=== PATIENT | female | born 1950 | race Caucasian/White ===

== ENCOUNTER → 2016-08-31 | Day surgery (SDC) | payer MEDICARE, BC ==
[~2016-08-31] MED LIST: ASPI81TA9 PO; ATEN25TA PO; ATOR40TA59 PO; CARB200T PO; CYAN10002 IJ; DULO60CA6 PO; FAMC500T PO; FLUT1DIS IH; GABA-586 PO; HYDROmorphone 2 MG/ML VIAL IV PRN; IV RINGERS,LACTATED 1000ML 1,000 ML IV SCH; LIDOCAINE 1% 1 ML SYRINGE. ID PRN; LIPA1CAP PO; MORPHINE SULFATE 2 MG/ML DISP.SYRIN. IV PRN; ONDANSETRON PF 4 MG/2 ML VIAL. IV PRN; PROCHLORPERAZINE 10 MG/2 ML VIAL. IV PRN; PROPOFOL 40 ML IV ONE; ROPI0.5T PO; TEMA15CA PO; fentaNYL PF VIAL 100 MCG/2 ML VIAL IV PRN
[2016-08-31 13:43] VITALS: BP 149/76
--- NOTE | 2016-09-04 15:27 | PATHOLOGY ---
PATHOLOGY REPORT * * * * * * * * FINAL DIAGNOSIS: A. Esophageal biopsies, distal esophagus: - Segments of hyperplastic squamous esophageal mucosa consistent with reflux esophagitis. B. Random colon biopsy: - No significant pathologic abnormalities. COMMENT: A. Sections of the distal esophageal biopsy reveal multiple segments of focally tangentially oriented, hyperplastic squamous esophageal mucosa. The findings are consistent with reflux esophagitis. There is no evidence of Howe's change, dysplasia, or malignancy. B. Sections of the random colon biopsy reveal multiple segments of colonic mucosa. There is no evidence of a chronic destructive colitis, lymphocytic colitis, or collagenous colitis. REPORT ELECTRONICALLY SIGNED BY: Jac Kohler M.D. DATE/TIME: 09/04/2016 15:27 * * * * * * * * GROSS PATHOLOGY: A. Received in formalin labeled "Joe Henson, distal esophagus biopsy reflux, rule out Howe's," are 7 segments of linder soft tissue measuring 0.7 x 0.5 x 0.3 cm in aggregate dimensions and ranging from 0.2 to 0.4 cm in maximum dimension. The specimen is submitted entirely in cassette A1. B. Received in formalin labeled "Joe Henson, random colon biopsy," are 7 segments of linder soft tissue measuring 0.8 x 0.5 x 0.2 cm in aggregate dimensions and ranging from 0.2 to 0.5 cm in maximum dimension. The specimen is submitted entirely in cassette B1. ([facility]; 09/01/2016) INITIAL CPT CODE(S): A; 54305 B; 02177 Professional services performed by [facility] at [address] [address] Technical services performed by [facility] at [address] [place] [address], [facility] [address], [place] [address]. SPECIMEN(S) RECEIVED: A.Distal esophagus biopsy reflux B.Random colon biopsy CLINICAL HISTORY: GERD PATIENT: JOE HENSON /AGE: 901/08/1950 (Age: 66) PATIENT #: [id number] ALT CASE #: SPECIMEN COLLECTION DATE: 08/31/2016 SPECIMEN RECEIVED DATE: 09/01/2016 [facility] - [address] [place] [address] - PHONE: [phone] * * * END OF REPORT * * *
== END | disposition home or self-care (01) ==
LOC: ENDOS 11:43
PROVIDERS: ATTEND Internal Medicine Gastroenterology
DX: K64.1 Second degree hemorrhoids (principal); K57.30 Diverticulosis of large intestine without perforation or abscess without bleeding; K21.0 Gastro-esophageal reflux disease with esophagitis; K29.50 Unspecified chronic gastritis without bleeding; T18.2XXA Foreign body in stomach, initial encounter; E78.00 Pure hypercholesterolemia, unspecified; J45.909 Unspecified asthma, uncomplicated; E03.9 Hypothyroidism, unspecified; Z88.8 Allergy status to other drugs, medicaments and biological substances; Z72.89 Other problems related to lifestyle; Z98.51 Tubal ligation status
CPT/HCPCS: 43239; 45380; J2704